=== PATIENT | male | born 1980 | race Two or more races ===

== ENCOUNTER 2020-06-26 21:28 | Emergency (ER) | payer SELFPAY ==
[~2020-06-26] VITALS: Ht 170.2 cm; Wt 77.1 kg
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
--- NOTE | 2020-06-26 21:36 | NUR ---
ED Nurse Note: Patient is male to female transition.
--- NOTE | 2020-06-26 21:36 | NUR ---
ED Nurse Note: [employer] at bedside
[2020-06-26 21:37] VITALS: BP 138/78
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
== END 2020-06-26 21:48 | disposition home or self-care (01) ==
LOC: EDBD 21:28 → EMR 21:48
DX: F15.10 Other stimulant abuse, uncomplicated (principal); Z87.890 Personal history of sex reassignment
CPT/HCPCS: 99281